=== PATIENT | male | born 1970 | race Caucasian/White ===

== ENCOUNTER → 2020-01-05 11:54 | Outpatient (BNVA) | payer MEDICAID, SELFPAY | PROVIDERS: Visit Provider Dermatology | DX: L40.0 Psoriasis vulgaris (principal); Z79.899 Other long term (current) drug therapy | CPT/HCPCS: 80053; 85025; 86705; 86706; 86709; 86803; 87340; 87806 ==

== ENCOUNTER → 2020-01-27 08:14 | Outpatient (BNVA) | payer MEDICAID, SELFPAY | PROVIDERS: Visit Provider Dermatology | DX: Z20.828 Contact with and (suspected) exposure to other viral communicable diseases (principal); L40.0 Psoriasis vulgaris; Z79.899 Other long term (current) drug therapy | CPT/HCPCS: 86480; 87635 ==

== ENCOUNTER → 2020-12-24 13:38 | Outpatient (BNVA) | payer BC, MEDICAID, SELFPAY | PROVIDERS: Visit Provider Registered Nurse Neonatal Intensive Care | DX: M25.529 Pain in unspecified elbow (principal) | CPT/HCPCS: 73080 ==

== ENCOUNTER 2021-03-21 08:14 | Outpatient (CLI) | payer BC, MEDICAID, SELFPAY ==
[2021-03-21 08:49] LABS: Basophils # 0.1 10^3/uL (0.0-0.1); Eosinophils # 0.6 10^3/uL (0.0-0.8); Eosinophils % 7.9 %; Hemoglobin 15.4 g/dL (11.7-16.6); Lymphocytes # 2.1 10^3/uL (0.8-4.8); Lymphocytes % 28.2 %; Mean Corpuscular HGB Conc 33.5 g/dL (30.0-36.0); Mean Corpuscular Volume 89.7 fl (80-94); Mean Platelet Volume 9.4 fL (7.4-10.4); Monocytes # 0.6 10^3/uL (0.2-0.9); Monocytes % 8.5 %; Neutrophils # 3.97 10^3/uL (1.8-7.7); Neutrophils % 54.1 %; Nucleated Red Blood Cells % 0 %; Platelet Count 377 10^3/cmm (130-400); Red Blood Count 5.13 10^6/uL (4.1-5.3); Red Cell Distribution Width 11.7 % (12.1-15.1); White Blood Count 7.3 10^3/uL (4.0-10.0)
[2021-03-21 09:05] LABS: Alanine Aminotransferase 23 U/L (0-41); Albumin Level 4.1 g/dL (3.5-5.2); Alkaline Phosphatase 66 IU/L (40-130); Anion Gap 16.7 (5-19); Aspartate Amino Transferase 19 U/L (0-40); Blood Urea Nitrogen 11 mg/dL (6-20); Calcium 9.8 mg/dL (8.5-10.5); Carbon Dioxide 26 mmol/L (22-29); Chloride 105 mmol/L (98-107); Globulin 2.9 g/dL (1.3-4.6); Glomerular Filtration Rate 103.2 mL/min (90-130); Glucose 123 mg/dL (65-115); Osmolality Calculated 297 mOsm/kg (285-295); Potassium 4.7 mmol/L (3.5-5.1); Sodium 143 mmol/L (136-145); Total Bilirubin 0.2 mg/dL (0.15-1.2)
[2021-03-21 10:04] LABS: HIV 1 & 2 Antibody Non-Reactive (Non-Reactiv); HIV 1 & 2 Antigen Non-Reactive (Non-Reactiv)
[2021-03-21 10:26] LABS: Hepatitis A Antibody IgM Non-Reactive (Nonreactive); Hepatitis B Core AB, Total Non-Reactive (Nonreactive); Hepatitis B Surface AB 3.5 (11.5-1000); Hepatitis C Virus Antibody Non-Reactive (Nonreactive)
[2021-03-21 10:50] LABS: Hepatitis B Surface Antigen Non-Reactive (Nonreactive)
[2021-03-23 13:04] LABS: Quantiferon Mitogen >10.00 IU/mL; Quantiferon Nil 0.01 IU/mL; Quantiferon Plus TB2 0.01 IU/mL; Quantiferon TB Gold NEGATIVE (NEGATIVE)
== END 2021-03-21 08:15 | disposition home or self-care (01) ==
LOC: LAB 08:19
PROVIDERS: PCP Family Medicine; Visit Provider Dermatology
DX: L40.0 Psoriasis vulgaris (principal); Z79.899 Other long term (current) drug therapy
CPT/HCPCS: 36415; 80053; 85025; 86480; 86705; 86706; 86709; 86803; 87340; 87806

== ENCOUNTER 2022-01-13 13:56 | Outpatient (CLI) | payer BC, MEDICAID, SELFPAY ==
[2022-01-13 14:35] LABS: Basophils # 0.1 10^3/uL (0.0-0.1); Basophils % 1.2 %; Eosinophils # 0.3 10^3/uL (0.0-0.8); Eosinophils % 4.2 %; Hematocrit 44.5 % (42.0-52.0); Hemoglobin 14.7 g/dL (11.7-16.6); Lymphocytes # 2.6 10^3/uL (0.8-4.8); Lymphocytes % 34.7 %; Mean Corpuscular Hemoglobin 29.5 pg (28.0-34.0); Mean Corpuscular Volume 89.4 fl (80-94); Mean Platelet Volume 9.4 fL (7.4-10.4); Monocytes # 0.8 10^3/uL (0.2-0.9); Monocytes % 10.2 %; Neutrophils # 3.72 10^3/uL (1.8-7.7); Neutrophils % 49.4 %; Nucleated Red Blood Cells % 0 %; Platelet Count 304 10^3/cmm (130-400); Red Blood Count 4.98 10^6/uL (4.1-5.3); Red Cell Distribution Width 11.9 % (12.1-15.1); White Blood Count 7.5 10^3/uL (4.0-10.0)
[2022-01-13 15:01] LABS: HIV 1 & 2 Antibody Non-Reactive (Non-Reactiv); HIV 1 & 2 Antigen Non-Reactive (Non-Reactiv)
[2022-01-13 15:03] LABS: Alanine Aminotransferase 31 U/L (0-41); Albumin Level 4.5 g/dL (3.5-5.2); Alkaline Phosphatase 78 U/L (40-130); Anion Gap 12.9 (5-19); Aspartate Amino Transferase 24 U/L (0-40); Blood Urea Nitrogen 12 mg/dL (6-20); Carbon Dioxide 28 mmol/L (22-29); Chloride 103 mmol/L (98-107); Globulin 2.9 g/dL (1.3-4.6); Glomerular Filtration Rate 102.7 mL/min (90-130); Glucose 74 mg/dL (65-115); Osmolality Calculated 288 mOsm/kg (285-295); Potassium 3.9 mmol/L (3.5-5.1); Sodium 140 mmol/L (136-145); Total Bilirubin 0.5 mg/dL (0.15-1.2); Total Protein 7.4 g/dL (6.6-8.7)
[2022-01-13 16:29] LABS: Hepatitis A Antibody IgM Non-Reactive (Nonreactive); Hepatitis B Core AB, Total Non-Reactive (Nonreactive); Hepatitis B Surface AB 3.5 (11.5-1000); Hepatitis B Surface Antigen Non-Reactive (Nonreactive); Hepatitis C Virus Antibody Non-Reactive (Nonreactive)
[2022-01-17 12:08] LABS: Quantiferon Mitogen >10.00 IU/mL; Quantiferon Nil 0.01 IU/mL; Quantiferon Plus TB1 0.01 IU/mL; Quantiferon Plus TB2 0.01 IU/mL; Quantiferon TB Gold NEGATIVE (NEGATIVE)
== END 2022-01-13 13:57 | disposition home or self-care (01) ==
LOC: RAD 13:58
PROVIDERS: PCP Family Medicine; Visit Provider Dermatology
DX: L40.0 Psoriasis vulgaris (principal); Z79.899 Other long term (current) drug therapy
CPT/HCPCS: 80053; 85025; 86480; 86705; 86706; 86709; 86803; 87340; 87806

== ENCOUNTER → 2023-01-16 14:53 | Outpatient (BNVA) | payer BC, MEDICAID, SELFPAY | PROVIDERS: PCP Family Medicine; Visit Provider Nurse Practitioner Family | DX: L40.0 Psoriasis vulgaris (principal); Z79.899 Other long term (current) drug therapy | CPT/HCPCS: 80048; 85025; 86480 ==

== ENCOUNTER 2024-01-15 15:56 | Outpatient (CLI) | payer BC, MEDICAID, SELFPAY ==
[2024-01-15 17:02] LABS: Basophils # 0.1 10^3/uL (0.0-0.1); Basophils % 1.1 %; Eosinophils # 0.5 10^3/uL (0.0-0.8); Eosinophils % 5.6 %; Hematocrit 45.9 % (37-53); Lymphocytes # 2.5 10^3/uL (0.8-4.8); Mean Corpuscular HGB Conc 33.8 g/dL (30-55); Mean Corpuscular Hemoglobin 30.3 pg (27-33); Mean Corpuscular Volume 89.6 fl (82-101); Mean Platelet Volume 9.6 fL (7.4-10.4); Monocytes # 0.8 10^3/uL (0.2-0.9); Monocytes % 9.1 %; Neutrophils # 4.48 10^3/uL (1.8-7.7); Nucleated Red Blood Cells % 0 %; Platelet Count 295 10^3/cmm (157-399); Red Blood Count 5.12 10^6/uL (3.85-5.65); Red Cell Distribution Width 11.8 % (12.1-15.1); White Blood Count 8.28 10^3/uL (3.29-11.43)
[2024-01-15 17:37] LABS: Anion Gap 11.1 (5-19); Blood Urea Nitrogen 12 mg/dL (6-20); Calcium 9.1 mg/dL (8.5-10.5); Carbon Dioxide 30 mmol/L (22-29); Chloride 103 mmol/L (98-107); Glomerular Filtration Rate 101.9 mL/min (90-130); Glucose 97 mg/dL (65-115); Osmolality Calculated 290 mOsm/kg (285-295); Potassium 4.1 mmol/L (3.5-5.1); Sodium 140 mmol/L (136-145)
== END 2024-01-15 15:57 | disposition home or self-care (01) ==
PROVIDERS: PCP Family Medicine; Visit Provider Nurse Practitioner Family
DX: L40.0 Psoriasis vulgaris (principal); Z79.899 Other long term (current) drug therapy
CPT/HCPCS: 36415; 80048; 85025; 86480

== ENCOUNTER → 2024-01-22 17:17 | Outpatient (BNVA) | payer BC, MEDICAID, SELFPAY | PROVIDERS: PCP Family Medicine; Visit Provider Emergency Medicine | DX: S99.922A Unspecified injury of left foot, initial encounter (principal); S92.502A Displaced unspecified fracture of left lesser toe(s), initial encounter for closed fracture; X58.XXXA Exposure to other specified factors, initial encounter | CPT/HCPCS: 73630 ==

== ENCOUNTER → 2024-07-15 15:45 | Outpatient (BNVA) | payer BC, MEDICAID, SELFPAY | PROVIDERS: PCP Family Medicine; Visit Provider Family Medicine | DX: Z12.5 Encounter for screening for malignant neoplasm of prostate (principal); N52.9 Male erectile dysfunction, unspecified; R53.83 Other fatigue; R53.82 Chronic fatigue, unspecified; E29.1 Testicular hypofunction | CPT/HCPCS: 80053; 80061; 84403; 84439; 84443; 85025; G0103 ==

== ENCOUNTER 2025-01-05 15:52 | Outpatient (CLI) | payer BC, MEDICAID, SELFPAY | END 2025-01-05 15:53 | disposition home or self-care (01) | LOC: LAB 15:53 | PROVIDERS: PCP Family Medicine; Visit Provider Nurse Practitioner Family | DX: L40.0 Psoriasis vulgaris (principal); Z79.899 Other long term (current) drug therapy | CPT/HCPCS: 86480 ==